=== PATIENT | male | born 2000 | race African-American/Black ===

== ENCOUNTER 2021-08-01 22:03 | Emergency (ER) | payer OTHER, SELFPAY ==
[2021-08-01 22:05] VITALS: BP 135/55; PULSE 77; RESP 16; TEMP 36.8; O2SAT 100
--- NOTE | 2021-08-01 22:49 | ED.EAR ---
HPI - Ear Problem General Chief complaint: Ear Stated complaint: right ear pain Time Seen by Provider: 08/01/21 22:37 Source: patient History of Present Illness HPI Narrative: Patient presents with right earache. Patient ports he [place] and got water in his ear thought he got it all out however over the next couple days he has had increasing pain and diminished hearing on that right side he was concerned so he came to the ER for evaluation. He has not noted any drainage coming out of the ER. His ear is painful described as an ache, constant, worse with manipulating the ear and radiating to his jaw. Denies any fevers or chills denies any difficulty swallowing denies any shortness of breath. Related Data Allergies Allergy/AdvReac Type Severity Reaction Status Date / Time No Known Allergies Allergy Mild Verified 08/01/21 22:03 Review of Systems Review of Systems: CONSTITUTIONAL: Denies fever, chills, or sweats. EYES: Denies visual changes, redness, or discharge. ENT: Denies rhinorrhea, congestion, sore throat, or otalgia. CARDIOVASCULAR: Denies chest pain, palpitations, or edema. RESPIRATORY: Denies cough or dyspnea. GASTROINTESTINAL: Denies abdominal pain, nausea, vomiting, or diarrhea. GENITOURINARY: Denies dysuria or hematuria. SKIN: Denies rash or itching. MUSCULOSKELETAL: Denies back pain, joint pain, or myalgia. NEUROLOGIC: Denies headache, numbness, dizziness, or weakness. PSYCHIATRIC: Denies anxiety or depression. All systems reviewed & are unremarkable except as noted in HPI and below Exam Narrative: GENERAL: Well-appearing, well-nourished, and in no acute distress. HEAD: Normocephalic, atraumatic. EYES: PERRLA and EOMI. ENT: Nares clear, no rhinorrhea or epistaxis. Mucous membranes moist. Left EAC and TM clear. Right TM clear right EAC with edema and erythema. Pain with manipulation of the right ear no apparent drainage NECK: Supple. No masses. No JVD EXTREMITIES: Normal range of motion. No edema. SKIN: Warm, dry, no rash. NEURO: No focal deficits. Alert and oriented x3. PSYCH: Normal mood and affect. Course Vital Signs Vital signs: Vital Signs Temperature 36.8 C 08/01/21 22:05 Pulse Rate 77 08/01/21 22:05 Respiratory Rate 16 08/01/21 22:05 Blood Pressure 135/55 L 08/01/21 22:05 Pulse Oximetry 100 08/01/21 22:05 Oxygen Delivery Room Air 08/01/21 22:05 Temperature 36.8 C 08/01/21 22:05 Pulse Rate 77 08/01/21 22:05 Respiratory Rate 16 08/01/21 22:05 Blood Pressure 135/55 L 08/01/21 22:05 Pulse Oximetry 100 08/01/21 22:05 Oxygen Delivery Room Air 08/01/21 22:05 Medical Decision Making MDM Narrative Medical decision making narrative: H&P as above, vss, pt looks clinically well, exam with erythema and edema in the right EAC, labs/img considered, symptomatic relief available as needed, on reevaluation pt continues to looks clinically well. Suspect otitis externa, dns otitis media and severe sepsis, abscess malignant otitis externa plan to tx/monitor as op w/ pcm f/u findings/plan discussed with pt, pt agree/comfortable with plan, return precautions given Vital Signs Vital Signs: Vital Signs Temperature 36.8 C 08/01/21 22:05 Pulse Rate 77 08/01/21 22:05 Respiratory Rate 16 08/01/21 22:05 Blood Pressure 135/55 L 08/01/21 22:05 Pulse Oximetry 100 08/01/21 22:05 Oxygen Delivery Room Air 08/01/21 22:05 Temperature 36.8 C 08/01/21 22:05 Pulse Rate 77 08/01/21 22:05 Respiratory Rate 16 08/01/21 22:05 Blood Pressure 135/55 L 08/01/21 22:05 Pulse Oximetry 100 08/01/21 22:05 Oxygen Delivery Room Air 08/01/21 22:05 Discharge Plan Discharge Clinical Impression: Otitis externa Patient Disposition: Home, Self-Care Condition: Improved Instructions: Antibiotic Form, Swimmer's Ear (ED) Additional Instructions: Please return if your symptoms worsen or fail to improve. If you develop a fever, can not
== END 2021-08-01 23:25 | disposition home or self-care (01) ==
PROVIDERS: Emergency Provider Emergency Medicine
DX: H60.91 Unspecified otitis externa, right ear (principal)
CPT/HCPCS: 99283

== ENCOUNTER 2024-12-25 16:43 | Emergency (ER) | payer OTHER, SELFPAY ==
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
[2024-12-25 16:49] VITALS: BP 131/62; PULSE 68; RESP 16; TEMP 36.7; O2SAT 100
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
--- OUTSIDE RECORDS SUMMARY | 2024-12-25 17:59 | XMS_ITS | Clinical Summary ---
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 Gender Identity Not on file Sexual Orientation Not on file Last Filed Vital Signs Vital Sign Reading Time Taken Comments Blood Pressure 102/54 09/25/2012 9:11 AM CDT Pulse - - Temperature - - Respiratory Rate - - Oxygen Saturation - - Inhaled Oxygen Concentration - - Weight 49.9 kg (110 lb) 09/25/2012 9:08 AM CDT Height 171.5 cm (5' 7.5) 09/25/2012 9:08 AM CDT Body Mass Index 16.97 09/25/2012 9:08 AM CDT Plan of Treatment Health Maintenance Due Date Last Done Comments Annual Physical 2001 HPV Vaccines (1 - Male 3-dose series) 2013 Hepatitis C 01/15/2016 DTaP, Tdap and Td Vaccines (7 - Td or Tdap) 09/25/2022 09/25/2012, 10/06/2009, 10/16/2003, Additional history exists COVID-19 Vaccine (2024- season) 2024 Influenza Adult (#1) 2024 Hepatitis B Vaccines Completed 1998, 1998, 1998 Hepatitis A Vaccines Completed 04/26/2010, 10/07/19 10 Meningococcal B Vaccine Aged Out No l onger eligible based on patient's age to complete this topic Meningococcal Vaccine Aged Out No jules yudi eligible based on patient's age to complete this topic Pneumococcal Vaccine: Pediatrics (0 to 5 Years) and At-Risk Patients (6 to 49 Years) Aged Out No longer eligible based on patient's age to complete this topic RSV Immunizations Under 20 Months Aged Out No longer eligible based on patient's age to complete this topic
--- OUTSIDE RECORDS SUMMARY | 2024-12-25 20:53 | XMS_ITS | Clinical Summary ---
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
[2024-12-25] MEDS: KETOROLAC (*BKC) 60 MG/2 ML VIAL IM (21:51)
[2024-12-25] MEDS: CYCLOBENZAPRINE HCL 10 MG TABLET PO (21:51)
== END 2024-12-25 21:55 | disposition home or self-care (01) ==
PROVIDERS: Emergency Provider Emergency Medicine
DX: S46.912A Strain of unspecified muscle, fascia and tendon at shoulder and upper arm level, left arm, initial encounter (principal); S19.9XXA Unspecified injury of neck, initial encounter; S09.90XA Unspecified injury of head, initial encounter; V43.52XA Car driver injured in collision with other type car in traffic accident, initial encounter
CPT/HCPCS: 70450; 72125; 72128; 72131; 73030; 96372; 99284; A9270; J1885